=== PATIENT | male | born 1980 | race American Indian/Alaskan Native ===

== ENCOUNTER 2023-01-11 05:10 | Emergency (ER) | payer MEDICAID ==
[~2023-01-11] VITALS: Ht 185.4 cm; Wt 105.7 kg
[2023-01-11 05:10] VITALS: BP_SYST 167
== END 2023-01-11 05:35 | disposition left against medical advice (07) ==
LOC: SED 05:10
DX: M25.511 Pain in right shoulder (principal); M25.512 Pain in left shoulder; Z53.21 Procedure and treatment not carried out due to patient leaving prior to being seen by health care provider
CPT/HCPCS: 99281